=== PATIENT | female | born 1985 | race Hispanic/Latino ===

== ENCOUNTER 2017-11-01 11:15 | Inpatient (IN) | payer OTHER ==
[2017-11-01] VITALS (34 sets, daily range): BP systolic 99–149; BP diastolic 53–77
[~2017-11-01] VITALS: Ht 142.2 cm; Wt 56.2 kg
--- NOTE | 2017-11-01 11:05 | NUR ---
PATIENT TO UNIT FROM HOME ACCOMPANIED BY HER FRIEND. WEIGHT AND HEIGHT OBTAINED. ESCORTED TO ROOM 253. CLEAN CATCH SPECIMEN OF URINE EXPLAINED AND OBTAINED. EFM COMMENCED. HISTORY PER PART A ASSESSMENT. WILL ASSESS AND NOTIFY MD CALVILLO.
[~2017-11-01 11:15] MED LIST: PRE-NATAL PO
[2017-11-01 11:59] LABS: URINE BILIRUBIN - DIPSTICK NEGATIVE (NEGATIVE); URINE BLOOD DIPSTICK TRACE-INTACT (NEGATIVE); URINE COLOR YELLOW; URINE GLUCOSE - DIPSTICK NEGATIVE (NEGATIVE); URINE KETONE 15 mg/dL (NEGATIVE); URINE LEUK ESTERASE NEGATIVE (NEGATIVE); URINE NITRITE - DIPSTICK NEGATIVE (Negative); URINE PROTEIN - DIPSTICK NEGATIVE (NEG-TRACE); URINE UROBILINOGEN - DIPSTICK 0.2 E.U./dL (0.2)
--- NOTE | 2017-11-01 12:00 | NUR ---
CONTRACTIONS NOTED. SVE DONE CHARTED. MD TO BE NOTIFIED.
[2017-11-01 12:02] LABS: URINE CLARITY SL CLOUDY
[2017-11-01 12:08] LABS: BARBITURATES NEGATIVE (NEGATIVE); COCAINE NEGATIVE (NEGATIVE); METHADONE NEGATIVE (NEGATIVE); OXCYCODONE NEGATIVE (NEGATIVE); TETRAHYDROCANNABIONOL NEGATIVE (NEGATIVE); TRICYLIC ANTIDEPRESSANTS NEGATIVE (NEGATIVE)
--- NOTE | 2017-11-01 12:15 | NUR ---
DR LYNN NOTIFIED OF SVE. NEW ORDERS RECEIVED TO BE COMMENCED.
[2017-11-01 12:51] LABS: HEMOGLOBIN 10.5 g/dl (12.0-16.0); IMMATURE GRANULOCYTES 0.6 % (0.0-1.0); MEAN CELL VOLUME 75.7 fL CALC (80.0-100.0); MEAN CORPUSCULAR HGB 24.1 pG CALC (26.0-32.0); MEAN CORPUSCULAR HGB CONC 31.8 g/L CALC (32.0-36.0); NEUT# 8.57 thou/uL (2.00-7.15); RED BLOOD COUNT 4.36 mill/uL (4.20-5.60); RED CELL DISTRI WIDTH 17.3 % (11.5-15.5)
[2017-11-01 13:09] LABS: ALBUMIN 3.7 g/dL (3.2-5.0); ALKALINE PHOSPHATASE 362 u/l (38-126); ANION GAP 14 (6-22 (CALC)); BILIRUBIN, TOTAL 0.5 mg/dL (0.0-1.4); BUN 14 mg/dL (7-17); BUN/CREATININE RATIO 23 (12-20 (CALC)); CALCIUM 9.1 mg/dL (8.4-10.2); CARBON DIOXIDE 16 mmol/l (22-30); CHLORIDE 109 mmol/l (95-108); CREATININE 0.6 mg/dL (0.5-1.0); GFR > 60 ML/MIN (>=60 (CALC)); GFR FOR AFR.AMER. > 60 ML/MIN (>=60 (CALC)); GLUCOSE 76 mg/dL (65-105); POTASSIUM 4.4 mmol/l (3.5-5.1); SGOT/AST 28 u/l (14-36); SGPT/ALT 17 u/l (9-52); SODIUM 135 mmol/l (137-146); TOTAL PROTEIN 6.8 g/dL (6.3-8.2)
--- NOTE | 2017-11-01 13:50 | NUR ---
16FR BUTT CATHETER PLACED AT THIS TIME WITH APPROX 75 CC CLEAR YELLOW URINE RETURN. PATIENT TOLERATED PROCEDURE WELL.
--- NOTE | 2017-11-01 15:17 | NUR ---
TOLERATING CONTRACTIONS WELL. STATES PAIN IS "BEARABLE".
--- NOTE | 2017-11-01 15:33 | NUR ---
OFF MONITOR TO VOID AND WALK AFTERWARDS.
--- NOTE | 2017-11-01 16:04 | NUR ---
WALKING IN HALLWAY WITH S/O. TOLERATING SAME WELL. NO CONCERNS AT THIS TIME.
--- NOTE | 2017-11-01 17:14 | NUR ---
MEDCIATED FOR PAIN REQUESTED. VERBALSIE UNDERSTANDING OF SIDE EFFECTS.
--- NOTE | 2017-11-01 17:22 | NUR ---
RESTING IN BED WITH EYES CLOSED. RESPIRATIONS EVEN UNLABORED. OPENS EYES WITH NAME CALL. S/O AT BEDSIDE. VITAL SIGNS WNL. WILL CONTINUE TO MONITOR.
--- NOTE | 2017-11-01 18:28 | NUR ---
COMPLAINS OF BEING SLEEPY. REASSURED. ASSISTED TO POSITION CHANGE. S/O AT BEDSIDE. COPING WELL WITH CONTRACTIONS.
--- NOTE | 2017-11-01 18:45 | NUR ---
Intial shift assessment completed, pt speaks primarily chinese, but can get along with her romanian and nurse's chinese; will use Google Translate if anything not comprehended, or call for clinical data coordinator assistance. 1849 SVE /-2.
--- NOTE | 2017-11-01 18:50 | NUR ---
LR bolus 500 ml infusing r/t dayshift report of pts urine being very concentrated. Pt denies need to use bathroom at this time, denies offer to ambulate in room/romo. RN moved pt up in bed and coached her on breathing through contractions.
--- NOTE | 2017-11-01 19:00 | NUR ---
Mitchell Dockery, RNC call to Dr. Beltran re: SVE 7100/-2 membranes intact, pt contractions palpating strong and pt breathing well through contractions. asked when last dose of Nubain was, RN stated 2 hours ago. stated maybe another dose would help her. RN discussion with patient re: same. Pt states would like to wait awhile and will let nurse know when she needs pain meds.
--- NOTE | 2017-11-01 19:54 | NUR ---
Dr. Beltran on unit, visited patient. Pt up to bathroom, dizzy from medication but has steady gait. RN encouraged her to move at bedside or at least in the bed.
--- NOTE | 2017-11-01 19:56 | NUR ---
Pt only void 100ml, still slightly dark, LR 350 ml bolus infusing.
--- NOTE | 2017-11-01 20:19 | NUR ---
Pt doing a good job standing at bedside, moving hips with contractions. standing at her side.
--- NOTE | 2017-11-01 20:36 | NUR ---
LR bolus 500ml per Dr. Beltran r/t pt states she would like an epidural. Call to Customer Care Voice Consultant by Margie Amaral RN re: epdiural. Nursing supervisor water softener service will call in CREDIT FRONT OFFICE DEVELOPER, Dr. Beltran staying in hospital.
--- NOTE | 2017-11-01 20:42 | NUR ---
2040 Call to nursing typesetting supervisor re: pt would like an epidural, need PLASTIC PARTS DESIGNER. 2041 Moisés Valdez CRNA on the unit for epidural placement 2139 repeat calls to typesetting supervisor for automotive professional assistance re: epidural consent. 2144 Employee Iris in room interpreting consent. 215 Time Out for epidural.
[2017-11-02] VITALS (15 sets, daily range): BP systolic 93–123; BP diastolic 48–77
--- NOTE | 2017-11-02 00:17 | NUR ---
0017 Dr. Beltran in room for SVE, discussed section with patient r/t likely CPD. call to UTILITY WORKER PRODUCTION and OR team in the operating room downstairs re: same. 0033 Per oswmya done with explanation by Mitchell Dockery, RNC, jewelry removed. 0053 Ayo Valdez CRNA in room bolusing epidural 0103 Reglan given IV, 0107 Pepcid given IV. stated not to give any more antibiotics re: pt allergic to PCN and has received two doses of Clindamycin. 0136 Pt to OR via stretcher by O.R. staff
--- NOTE | 2017-11-02 04:00 | NUR ---
Pt in room 207 transferred from PACU, report received from PACU nurse. Post assessment done, fundus firm at 1 above umbilicus, moderate rubra lochia, renetta care done and pads changed. Q 15 min vital signs started, VS stable. Pt c/o pain 3/10 lower abdomen, can move legs but "feels like they are asleep". Laguerre draining clear dark orange urine. IV right hand 20g LR with pitocin 20 units infusing at 125ml/hr and SENIOR SQL DBA Morphine infusing at 2ml/hr. SCD's below the knee in place.
--- NOTE | 2017-11-02 05:35 | NUR ---
Incentive spirometer given to patient with instructions for use.
--- NOTE | 2017-11-02 07:00 | NUR ---
BEDSIDE REPORT DONE WITH LUIS BALDERAS. PATIENT LYING IN BED AWAKE. ADMITS TO MILD INCISIONAL PAIN. PLAN OF CARE DISCUSSED. PATIENT VERBALISE UNDERSTANDING. S/O AT BEDSIDE. NO CONCERNS AT THIS TIME.
--- NOTE | 2017-11-02 08:05 | NUR ---
ASSESSMENT DONE CHARTED. STATES PAIN IS BEARABLE. TOOK AND TOLERATED BREAKFAST.
--- NOTE | 2017-11-02 10:32 | NUR ---
PATIENT REQUESTING INFORMATION ON DEPRESSION. STATES SHE HAS NEVER BEEN DEPRESSED BUT HER SISTER HAD DEPRESSION. INFORMATION GIVEN TO PATIENT IN LITHUANIAN. PATIENT INFORMED THAT SHE WILL NOT NECESSARILY HAVE DEPRESSION BECAUSE OF HER SISTERS HISTORY.
--- NOTE | 2017-11-02 11:00 | NUR ---
ASSISTED UP TO BATHROOM. TOLERATED SAME WELL. BUTT REMOVED. FILOMENA EXPLAINED, DONE AND REDEMONSTRATION DONE. WASHED HER FACE AND BRUSHED HER TEETH. RETURNS TO BED. INSTRUCTED TO CALL NURSE FOR ASSISTANCE BEFORE GETTING OUT OF BED. PATIENT VERBALISE UNDERSTANDING. CALL LIGHTS WNL.
[2017-11-02 13:14] LABS: HEMATOCRIT 24.2 % (37.0-47.0); HEMOGLOBIN 7.9 g/dl (12.0-16.0); MEAN CELL VOLUME 75.2 fL CALC (80.0-100.0); MEAN CORPUSCULAR HGB 24.5 pG CALC (26.0-32.0); MEAN CORPUSCULAR HGB CONC 32.6 g/L CALC (32.0-36.0); NEUT# 9.96 thou/uL (2.00-7.15); RED BLOOD COUNT 3.22 mill/uL (4.20-5.60); RED CELL DISTRI WIDTH 17.2 % (11.5-15.5)
--- NOTE | 2017-11-02 16:09 | NUR ---
assisted to restroom. tolerated same with slight dizziness. back to bed. s/o at bedside. will continue to monitor.
--- NOTE | 2017-11-02 17:49 | NUR ---
PATIENT SITTING UP ON SIDE OF BED. NO CONCERNS AT THIS TIME. DINNER GIVEN. S/O AT BEDSIDE.
--- NOTE | 2017-11-02 19:27 | NUR ---
Initial shift assessment completed, pt given Lortab and Motrin for pain 01/22 states it especially hurts when she moves/walks. RN encouraged pt to ambulate in romo, used Google Translate to explain how her blood level dropped after having surgery and the importance of taking the iron, especially when she goes home, and drinking lots of fluid without caffeine. Pt then voiced understanding. IV removed with catheter intact, VS stable. Fundus firm at 1/U, Moderate rubra lochia, pt doing own renetta care and RN offered assistance if needed. low transverse abdominal incision with bulky dressing clean/dry/intact. RN offered assistance with shower and told her it would be easier to remove the bandage, pt asked if she could wait until later. Pt breathing unlabored, clear lungs bilaterally. Pt stable.
--- NOTE | 2017-11-02 20:22 | NUR ---
Mother states her told her "because of my stomach I cannot touch my baby". RN in room showing pt how to hold, feed and burp the baby.
--- NOTE | 2017-11-02 22:30 | NUR ---
Pt ambulating in hallway with steady gait accompanied by her while she is pushing baby in crib.
--- NOTE | 2017-11-02 23:06 | NUR ---
Pt states only has slight pain at this time, agreement made to remedicate at 0100.
[2017-11-03] VITALS (8 sets, daily range): BP systolic 96–124; BP diastolic 50–65
--- NOTE | 2017-11-03 01:00 | NUR ---
Pt medicated with Motrin and Lortab for abdominal pain 01/22. Pt up and ambulating in room without assistance, no dizziness. Parents agreed to send baby to nursery for awhile so they could sleep, baby to nursery.
--- NOTE | 2017-11-03 02:51 | NUR ---
Pt and her soundly asleep in her bed. Baby remains asleep in nursery
--- NOTE | 2017-11-03 06:50 | NUR ---
REPORT RECEIVED BY SHERRIE ROSE.
--- NOTE | 2017-11-03 08:00 | NUR ---
ASSESSMENT DONE AND VS CHARTED. PT STATED THAT SHE FEELS DIZZY WHEN SHE GETS UP. EXPLAINED TO PT TO SIT IN THE SIDE OF THE BED FIRST AND THEN GET UP SLOWLY. PT VERBALIZED UNDERSTANDING. PT STATED THAT SHE HAS BEEN PASSING GAS BUT NO BM. PT STATED THAT SHE HAS NOT BEEN DRINKING A LOT OF FLUIDS. ENCOURAGE PT TO DRINK MORE WATER. ENCOURAGE PT TO USE INCENTIVE SPIROMETRY. PT VERBALIZED UNDERSTANDING. CALL LIGHT IN REACH. S/O IN ROOM.
--- NOTE | 2017-11-03 08:30 | NUR ---
DR. LYNN AT BEDSIDE. ASSESSMENT DONE BY . PT TOLD MD THAT SHE HAS BEEN FEELING DIZZY. ALSO, TOLD MD ABOUT PT TEMP. MD TOLD PT TO DRINK MORE FLUIDS.
--- NOTE | 2017-11-03 11:52 | NUR ---
PT OUT OF THE SHOWER. PT STATED THAT SHE DID NOT FEEL DIZZY. PT TOLERATED SHOWER WELL. PT DENIES ANY NEEDS AT THIS TIME. S/O IN ROOM.
--- NOTE | 2017-11-03 13:50 | NUR ---
PT AMBULATING IN STEADY GAIT IN THE HALLWAYS HOLDING TO INFANT CRIB. PT STATED THAT SHE DID NOT FEEL DIZZY WALKING. PT STATED THAT SHE JUST FELT WEAK. RN AT SIDE .
--- NOTE | 2017-11-03 15:46 | NUR ---
CALLED DR. LYNN RE: PT C/O OF HEART RACING. VS 96/52, HR 100, 02 98%. ORDERS RECEIVED.
[2017-11-03 16:07] LABS: HEMATOCRIT 24.6 % (37.0-47.0); HEMOGLOBIN 7.9 g/dl (12.0-16.0); MEAN CELL VOLUME 77.4 fL CALC (80.0-100.0); MEAN CORPUSCULAR HGB 24.8 pG CALC (26.0-32.0); MEAN CORPUSCULAR HGB CONC 32.1 g/L CALC (32.0-36.0); RED BLOOD COUNT 3.18 mill/uL (4.20-5.60); RED CELL DISTRI WIDTH 18.2 % (11.5-15.5)
[2017-11-03 16:26] LABS: BAND 29 % (0-8); MANUAL DIFFERENTIAL YES
[2017-11-03 16:27] LABS: PLATELET COUNT 60 thou/uL (130-400)
--- NOTE | 2017-11-03 16:50 | NUR ---
CALLED DR. LYNN RE: PT BEING SEPSIS DUE TO THE PROTOCOL OF SEPSIS. HR GREATHER THAN 90, WBC GREATER 14, PLT LESS THAN 150. PT RESULTS HR 110 @1535, WBC 19.5 @1557, PLT 60 @1557. STATED WILL BE COMING.
--- NOTE | 2017-11-03 17:13 | NUR ---
DR. GRAY AT BEDSIDE TO ASSESS PT. ORDERS RECEIVED.
--- NOTE | 2017-11-03 17:29 | NUR ---
LAB CAME TO DRAW PT LACTATE AND X2 BLOOD CULTURES.
--- NOTE | 2017-11-03 18:00 | NUR ---
CALLED DR. CASIANO ABOUT LACTIC ACID 4.8. ORDERS RECEIVED.
--- NOTE | 2017-11-03 18:03 | NUR ---
DR. LYNN CALLED TO MAKE A CONSULT FOR DR. NIX FOR PT.
--- NOTE | 2017-11-03 18:15 | NUR ---
DR. NIX AT BEDSIDE TO ASSESS PT.
--- NOTE | 2017-11-03 18:50 | NUR ---
REPORT GIVEN TO SHERRIE HUFF.
--- NOTE | 2017-11-03 18:59 | NUR ---
DR. NIX IS AT BEDSIDE TO ASSESS PT.
--- NOTE | 2017-11-03 19:00 | NUR ---
REPORT RECEIVED FROM Mitchell HUBBARD RN, PT AWAKE AND ALERT, LYING IN BED, SPOUSE AT PT'S BEDSIDE, DR. NIX CONSULTING PT FOR RECENT CHANGE IN PT CONDITION, NEW ORDERS RECEIVED AND NOTED BY THIS NURSE AND DAY SHIFT NURSE, DR. NIX IN PT'S RM- REVIEWED POC AND RATIONALE W/PT AND SPOUSE- BOTH VERBALIZE UNDERSTANDING AND AGREE, ORDERS INITIATED AT THIS TIME.
--- NOTE | 2017-11-03 21:30 | NUR ---
ORDER FOR TRANSFUSION OF 2U OF PRBC'S, FIRST UNIT COMPLETED PER PROTOCOL AND W/OUT ANY REACTION, PT DENIES ANY CONCERNS AT THIS TIME, PER PT- FEELS "BETTER" AFTER RECEIVING THE UNIT OF BLOOD, VSS, ASSESSMENT DONE- SEE FLOWSHEET, PT AND SPOUSE ENCOURAGED TO CALL NURSE FOR ANY NEEDS OR CONCERNS, WILL CONT MONITORING PT.
[2017-11-03 22:36] LABS: URINE BLOOD DIPSTICK LARGE (NEGATIVE); URINE CLARITY CLOUDY; URINE COLOR AMBER; URINE GLUCOSE - DIPSTICK NEGATIVE (NEGATIVE); URINE KETONE NEGATIVE (NEGATIVE); URINE NITRITE - DIPSTICK NEGATIVE (Negative); URINE PH 6.5 (4.5-8.0); URINE PROTEIN - DIPSTICK 100 mg/dL (NEG-TRACE)
[2017-11-03 22:37] LABS: URINE BILIRUBIN - DIPSTICK NEGATIVE (NEGATIVE); URINE LEUK ESTERASE SMALL (NEGATIVE)
[2017-11-03 22:41] LABS: URINE BACTERIA MANY hpf; URINE RBC 25-50 RBC/hpf (0-5); URINE SQUAMOUS EPITHELIAL CELL FEW EPI/hpf (0-FEW)
[2017-11-04 00:35] VITALS: BP 90/55
--- NOTE | 2017-11-04 00:40 | NUR ---
SECOND UNIT OF BLOOD TRANSFUSION COMPLETE ORDERED, TRANSFUSION INFUSED W/OUT ANY REACTION, PT TOLERATED WELL, VS REMAINED STABLE, PT DENIES PAIN AT THIS TIME, SPOUSE AT BEDSIDE, PT DENIES ANY NEEDS AT THIS TIME, WILL CONT TO MONITOR.
[2017-11-04 01:48] LABS: HEMATOCRIT 30.6 % (37.0-47.0); HEMOGLOBIN 9.9 g/dl (12.0-16.0); IMMATURE GRANULOCYTES 1.6 % (0.0-1.0); MEAN CELL VOLUME 81.8 fL CALC (80.0-100.0); MEAN CORPUSCULAR HGB 26.5 pG CALC (26.0-32.0); MEAN CORPUSCULAR HGB CONC 32.4 g/L CALC (32.0-36.0); RED BLOOD COUNT 3.74 mill/uL (4.20-5.60); RED CELL DISTRI WIDTH 19.1 % (11.5-15.5)
[2017-11-04 02:14] LABS: MANUAL DIFFERENTIAL YES
[2017-11-04 02:15] LABS: BAND 11 % (0-8)
[2017-11-04 02:38] LABS: PLATELET COUNT 42 thou/uL (130-400)
[2017-11-04 03:30] VITALS: BP 101/59
--- NOTE | 2017-11-04 06:14 | NUR ---
PT RESTING QUIETLY IN CHAIR- AROUSES EASILY, MEDICATED SCHEDULED, PT DENIES ANY CONCERNS AT THIS TIME, PER PT- WAS ABLE TO TAKE A NAP AND FEELS BETTER, SPOUSE AT BEDSIDE TENDING TO , PT ALSO REENCOURAGED TO CALL OUT FOR NURSE FOR ANY FURTHER NEEDS OR CONCERNS- VERBALIZES UNDERSTANDING.
--- NOTE | 2017-11-04 07:00 | NUR ---
BEDSIDE REPORT WITH Jordan MONGE RN. KAMINI INTERPRETING FOR PT. PT IN CHAIR WITHOUT CONCERN OR COMPLAINT EXPRESSED. PTS LYING IN THE BED. Ayo ZELAYA WILL INTERPRET NEEDED. PT DOES COMMUNICATE SOME IN PRYDEINIG
[2017-11-04 07:12] LABS: ALBUMIN 2.1 g/dL (3.2-5.0); ALKALINE PHOSPHATASE 171 u/l (38-126); ANION GAP 10 (6-22 (CALC)); BILIRUBIN, TOTAL 4.9 mg/dL (0.0-1.4); BUN 14 mg/dL (7-17); BUN/CREATININE RATIO 19 (12-20 (CALC)); CALCIUM 7.5 mg/dL (8.4-10.2); CARBON DIOXIDE 19 mmol/l (22-30); CHLORIDE 114 mmol/l (95-108); CREATININE 0.7 mg/dL (0.5-1.0); GFR > 60 ML/MIN (>=60 (CALC)); GFR FOR AFR.AMER. > 60 ML/MIN (>=60 (CALC)); GLUCOSE 96 mg/dL (65-105); MAGNESIUM 1.3 mg/dL (1.6-2.3); POTASSIUM 4.2 mmol/l (3.5-5.1); SGOT/AST 65 u/l (14-36); SGPT/ALT 35 u/l (9-52); SODIUM 139 mmol/l (137-146); TOTAL PROTEIN 4.4 g/dL (6.3-8.2)
[2017-11-04 07:14] LABS: DIRECT BILIRUBIN 2.7 mg/dl (0.0-0.3)
--- NOTE | 2017-11-04 07:43 | NUR ---
SPOKE WITH DR. MANUEL TO CONFIRM THAT NO F/U CBC WAS ORDERED AT 0600 TODAY "NO NEED FOR ANOTHER ONE AT THIS TIME"
[2017-11-04 08:00] VITALS: BP 111/59
--- NOTE | 2017-11-04 08:37 | NUR ---
DR. LYNN HERE. CBC ORDERED ON BLOOD DRAW FROM 0630 TODAY
[2017-11-04 08:56] LABS: BASO% 0 % (0-3); EOS% 0 % (0-8); HEMATOCRIT 28.6 % (37.0-47.0); HEMOGLOBIN 9.7 g/dl (12.0-16.0); IMMATURE GRANULOCYTES 2.3 % (0.0-1.0); LYMPH% 2 % (15-41); MEAN CELL VOLUME 80.1 fL CALC (80.0-100.0); MEAN CORPUSCULAR HGB 27.2 pG CALC (26.0-32.0); MEAN CORPUSCULAR HGB CONC 33.9 g/L CALC (32.0-36.0); MONO% 5 % (2-13); NEUT% 90 % (42-76); PLATELET COUNT 51 thou/uL (130-400); RED BLOOD COUNT 3.57 mill/uL (4.20-5.60); RED CELL DISTRI WIDTH 18.7 % (11.5-15.5)
[2017-11-04 09:20] VITALS: BP 110/60
[2017-11-04 09:33] LABS: MANUAL DIFFERENTIAL YES
[2017-11-04 09:34] LABS: BAND 52 % (0-8)
--- NOTE | 2017-11-04 10:13 | NUR ---
CHART AND LAB REVIEW WITH Ronda SULTANA, RN AND KATTY GAY, RN/ICU. Mitchell ROA RN PRESENT. DR. MANUEL TO SEE PT THIS AM. PLAN OF CARE REVIEWED WITH PT. AND . PT CONTINUES TO DO WELL, OOB WITHOUT DIFFICULTY. VS STABLE, AFEBRILE. WBC IS ELEVATED AND LAST PLATELETS ARE INCREASED TO 51,000
--- NOTE | 2017-11-04 11:04 | NUR ---
DR. MANUEL HERE AND SPOKE WITH PT AND IN ZAMBIAN RE: LOW PLATELETS AND ELEVATED WBC AND NEED FOR LAB PERIPHERAL SMEAR. PT EXPRESSES UNDERSTANDING FOR NEED FOR CONTINUED ANTIBIOTICS AND OBSERVATION. ENCOURAGED TO ASK QUESTIONS.
[2017-11-04 11:30] VITALS: BP 105/59
--- NOTE | 2017-11-04 11:46 | NUR ---
PT USING INCENTIVE SPIROMETER, REMINDED TO USE BREAST PUMP Q 2-3 HOURS AND GIVEN INSTRUCTIONS. PT JUST FINISHED AMBULATING IN ROOM. ENCOURAGED AMBULATION IN HALLWAY. PT ASYMTOMATIC WHEN AMBULATING.
--- NOTE | 2017-11-04 14:55 | NUR ---
ANTIBIOTIC INFUSED AND D/C'D BY Ramy GARAY RN
[2017-11-04 15:30] LABS: HEMATOCRIT 30.2 % (37.0-47.0); HEMOGLOBIN 10.4 g/dl (12.0-16.0); IMMATURE GRANULOCYTES 4.5 % (0.0-1.0); MEAN CELL VOLUME 79.9 fL CALC (80.0-100.0); MEAN CORPUSCULAR HGB 27.5 pG CALC (26.0-32.0); MEAN CORPUSCULAR HGB CONC 34.4 g/L CALC (32.0-36.0); PLATELET COUNT 69 thou/uL (130-400); RED BLOOD COUNT 3.78 mill/uL (4.20-5.60)
[2017-11-04 15:33] LABS: MANUAL DIFFERENTIAL YES
[2017-11-04 15:51] LABS: BAND 32 % (0-8)
--- NOTE | 2017-11-04 16:31 | NUR ---
DOING WELL, AMBULATING. ENCOURAGED BREAST PUMP USE AGAIN. STATES TYLENOL GAVE GOOD RELIEF
--- NOTE | 2017-11-04 17:17 | NUR ---
MAGNESIUM SULFATE ORDER CLARIFIED WITH Wanda GAY RN, ICU. WILL BE GIVEN OVER [address] LYNN COMING IN TO EXPLAIN TO PT IN TURKISH
--- NOTE | 2017-11-04 17:34 | NUR ---
DR. LYNN HERE TO SEE PT. PLAN OF CARE AND FOLLOWUP DISCUSSED AND ALL LABS REVIEWED
--- NOTE | 2017-11-04 18:15 | NUR ---
REPORT PREPARED FOR ONCOMING SHIFT
--- NOTE | 2017-11-04 18:45 | NUR ---
REPORT RECEIVED FROM Mela CHAUDHARY RN. BEDSIDE REPORTING COMPLETED. PLAN OF CARE REVIEWED. PATIENT SITTING AT SIDE OF BED, EATING MEAL. DENIES NEEDS AT THIS TIME.
[2017-11-04 20:30] VITALS: BP 104/67
--- NOTE | 2017-11-04 20:30 | NUR ---
ASSESSMENT COMPLETED. PATIENT REASSURED RE/ EDEMA AND ENCOURAGED USE OF PAIN MEDICATION TO ALLOW INCREASED ACTIVITY. VERBALIZED UNDERSTANDING.
--- NOTE | 2017-11-04 22:00 | NUR ---
COMPUTER-GENERATED ORDERS REVIEWED, IV FLUIDS CHANGED FROM LR TO D5 LR @ 100 MLS PER HOUR, ORDERED.
--- NOTE | 2017-11-04 22:09 | NUR ---
IV ANTIBIOTIC, MERREM 1 GR. INFUSING ORDERED; IV SITE IN LRA WITHOUT S/S OF IV COMPLICATIONS.
[2017-11-05 00:10] VITALS: BP 111/65
--- NOTE | 2017-11-05 00:10 | NUR ---
ASSUMED CARE OF PT.
--- NOTE | 2017-11-05 00:15 | NUR ---
VSS CHARTED. PT TOLERATING REGULAR DIET AND PO FLUIDES; VOIDING WITHOUT DIFFICULTY, DENIES ANY C/O BURNING, URGENCY, OR PAIN WHEN URINATING. IN D5LR INFUSING AT 100ML/HR ON INFUSION PUMP; IV SITE IN LFA REMAINS WITHOUT S/S OF IV COMPLICATIONS. SIGNIFICANT OTHER REMAINS AT BEDSIDE, CARING FOR APPROPRIATELY. PT DENIES ANY C/O DISCOMFORT AT THIS TIME. CALLBELL WITHIN REACH.
--- NOTE | 2017-11-05 01:41 | NUR ---
PT RESTING QUEILTY IN BED WITH EYES CLOSED, RESPIRATIONS UNLABORED; IN NO APPARENT DISTRESS. IV MAINTAINED WITHOUT INCIDENT. CALLBELL WITHIN REACH.
--- NOTE | 2017-11-05 03:00 | NUR ---
PT OOB TO BATHROOM; DENIES ANY C/O DISCOMFORT AT THIS TIME.
[2017-11-05 04:30] VITALS: BP 106/68
--- NOTE | 2017-11-05 04:46 | NUR ---
VSS. PT C/O INCREASED INCISIONAL DISCOMFORT, RATING HER PAIN LEVEL AT 5:10; MEDICATED ORDERED WITH LORTAB 7.5 MG PO. IV MAINTAINED WITHOUT INCIDENT. CALLBELL WITHIN REACH.
--- NOTE | 2017-11-05 05:45 | NUR ---
PT NOW RESTING QUIELTY IN BED, VERBALIZED RELIEF OF PAIN FROM LORTAB GIVEN EARLIER; OFFERS NO FURTHER C/O DISCOMFORT AT THIS TIME.
--- NOTE | 2017-11-05 06:15 | NUR ---
IV, D5LR CONTINUES INFUSING AT 100ML/HR ON INFUSION PUMP; IV ANTIBIOTIC, MERREM, 1 GR IVPB IS INFUSING ORDERED; IV SITE IN LFA REMAINS WITHOUT S/S OF IV COMPLICATIONS; LAB DRAWN ORDERED; PT IS SITTING UP IN BED, RESTING QUIELTY, DENIES ANY C/O DISCOMFORT AT THIS TIME. SIGNIFICANT OTHER REMAINS AT BEDSIDE CARING FOR . CALLBELL WITHIN REACH.
[2017-11-05 06:23] LABS: HEMATOCRIT 27.8 % (37.0-47.0); HEMOGLOBIN 9.3 g/dl (12.0-16.0); IMMATURE GRANULOCYTES 2.1 % (0.0-1.0); MEAN CELL VOLUME 81.3 fL CALC (80.0-100.0); MEAN CORPUSCULAR HGB 27.2 pG CALC (26.0-32.0); MEAN CORPUSCULAR HGB CONC 33.5 g/L CALC (32.0-36.0); NEUT# 21.95 thou/uL (2.00-7.15); RED BLOOD COUNT 3.42 mill/uL (4.20-5.60); RED CELL DISTRI WIDTH 19.2 % (11.5-15.5)
--- NOTE | 2017-11-05 06:50 | NUR ---
PT ENCOURAGED TO USE THE INCENTIVE SPIROMETER, PT DEMONSTRATED PROPER USE, WAS ABLE TO GET UP 1000 - 1500 ML X 10 REPITITIONS. PT WAS INSTRUCTED TO USE THE INCENTIVE SPIROMETER EVERY HOUR WHILE AWAKE, PT VERBALIZED UNDERSTANDING.
--- NOTE | 2017-11-05 07:40 | NUR ---
RESTS IN BED, ABD SOFT, FUNDUS FIRM. PT STATES SHE HAS NO PROBLEM URINATING, DOES ANEESH CARE. DENIES ANY PROBLEM URINATING. S/O IN ROOM, PT SERVED MEAL.
--- NOTE | 2017-11-05 08:17 | NUR ---
OOB TO BATHROOM.
[2017-11-05 08:40] VITALS: BP 117/63
--- NOTE | 2017-11-05 08:40 | NUR ---
SITS ON SIDE OF BED EATING BREAKFAST. DENIES PAIN.
--- NOTE | 2017-11-05 08:45 | NUR ---
DR LYNN IN TO SEE PT.
--- NOTE | 2017-11-05 10:30 | NUR ---
PT HAS BEEN OOB WALKING IN ROOM.
--- NOTE | 2017-11-05 11:21 | NUR ---
DR MANUEL PHONES IN, TO START PT ON PO CIPRO, FOR UTI. IV ANTIBIOTIC DISCONTINUED. DR MANUEL WILL CALL DR LYNN TO SPEAK TO HIM.
--- NOTE | 2017-11-05 12:25 | NUR ---
PT STATES SHE DOES NOT KNOW WHY SHE IS NEEDING ANTIBIOTICS. DISCUSSED WITH PT AND S/O SYMPTOMS AND LAB WORK RESULTS RELATED TO SEPTIC WORK UP. DISCUSSED IMPORTANCE OF TREATMENT TO AVOID DETERIORATION OF HEALTH, BODY ORGANS. PT AND S/O RESEARCH SEPSIS ON INTERNET VIA CELL PHONES. PT GIVEN PT WRITTEN PT INSTRUCTION INFORMATION ON SEPSIS. PT AND S/O VERBALIZE SATISFACTION WITH [id number] INFORMATION, AWARE TO LET US KNOW IF THEY HAVE ANY QUESTIONS TO BE ANSWERED.
[2017-11-05 14:00] VITALS: BP 116/80
--- NOTE | 2017-11-05 15:15 | NUR ---
DISCHARGE PLAN FOR AND PT REVIEWED, PT VERBALIZES UNDERSTANDING.
[2017-11-05 17:10] VITALS: BP 119/67
--- NOTE | 2017-11-05 17:17 | NUR ---
PT WAS RESTING IN BED, SITTING FOR VS TO BE TAKEN, USING INCENTIVE SPIROMETER. S/O IN ROOM.
--- NOTE | 2017-11-05 19:15 | NUR ---
1914:PT REPORT RECEIVED FROM HENRIQUE WALTERS RN IN PT ROOM. PT SITTING ON SIDE OF BED EATING DINNER. DAY NURSE EXPLAINS TO PT IN MAORI NEED TO KEEP LEGS ELEVATED, KEEP MEASURING URINE. PT COMPLAINS SHE WANTS IV "OFF". 1929: DR. MANUEL NOTIFIED OF PT REQUESTING TO HAVE IV D/C. PHYSICIAN ORDERS RECEIVED TO D/C. ORDER WRITTEN AND CARRIED OUT. PT IV SALINE LOCKED.
--- NOTE | 2017-11-05 19:15 | NUR ---
REPORT TO ONCOMING NURSE IN ROOM. REVIEWED WITH PT TO KEEP LEGS ELEVATED, CONTINUE TO DRINK FLUIDS. PT MAY TAKE SHOWER, PT MAY BREAST FEED AFTER 8PM TONIGHT. PT STATES SHE DID NOT PUMP BREASTS THINKING THE COLOLSTRUM FOR BABY WAS BENEFICIAL. ASKED PT IF S EH HAD ANY QUESTIONS, STATES SHE HAS BEEN EXPERIENCING SLIGHT DISTORTION OF HEARING, JUST STARTED, STATES SHE THINKS ALL THE IV FLUIDS SHE IS RECEIVING MAY BE THE CAUSE.
--- NOTE | 2017-11-05 20:17 | NUR ---
CBC DRAWN FROM LEFT ANTICUBITAL WITHOUT DIFFICULTY. NO BLEEDING FROM SITE POST PROCEDURE.
[2017-11-05 20:35] LABS: IMMATURE GRANULOCYTES 2.8 % (0.0-1.0); MEAN CELL VOLUME 82.2 fL CALC (80.0-100.0); MEAN CORPUSCULAR HGB 26.5 pG CALC (26.0-32.0); MEAN CORPUSCULAR HGB CONC 32.3 g/L CALC (32.0-36.0); PLATELET COUNT 103 thou/uL (130-400); RED BLOOD COUNT 3.77 mill/uL (4.20-5.60); RED CELL DISTRI WIDTH 19.6 % (11.5-15.5)
[2017-11-05 21:00] LABS: MANUAL DIFFERENTIAL YES
[2017-11-05 21:11] VITALS: BP 122/75
[2017-11-05 21:17] LABS: BAND 20 % (0-8)
--- NOTE | 2017-11-05 22:50 | NUR ---
PT SITTING ON SIDE OF BED WITH FEET DANGLING. ENCOURAGED AGAIN TO ELEVATE FEET IN BED. PT AND ACKNOWLEDGE REQUEST. BED IN LOW POSITION AND CALL LIGHT WITHIN REACH. VOIDS 500CC BLOOD TINGED URINE. HAS NO COMPLAINTS.
--- NOTE | 2017-11-06 02:34 | NUR ---
CARE ASSUMED BY Mitchell SCHMIDT RN. PAIN MEDICATION ADMINISTERED PER ORDERS. URINE OUTPUT IMPROVING, BECOMING CLEARER. PATIENT C/O FEELING OF "FULLNESS' IN THE EARS BILATERALLY, WITHOUT ASSOCIATED PAIN. REMAINS AFEBRILE. WILL CONTINUE TO MONITOR. SIDE RAILS UP X 2, CALL [place] WITHIN REACH.
[2017-11-06 02:57] VITALS: BP 128/82
--- NOTE | 2017-11-06 04:45 | NUR ---
RESTING WITH EYES CLOSED. SIDE RAILS UP X 2. CALL [place] WITHIN REACH. NO CLINICAL NEEDS IDENTIFIED AT THIS TIME.
[2017-11-06 07:24] LABS: HEMATOCRIT 29.3 % (37.0-47.0); HEMOGLOBIN 9.6 g/dl (12.0-16.0); MEAN CELL VOLUME 81.6 fL CALC (80.0-100.0); MEAN CORPUSCULAR HGB 26.7 pG CALC (26.0-32.0); MEAN CORPUSCULAR HGB CONC 32.8 g/L CALC (32.0-36.0); NEUT# 11.66 thou/uL (2.00-7.15); RED BLOOD COUNT 3.59 mill/uL (4.20-5.60); RED CELL DISTRI WIDTH 19.7 % (11.5-15.5)
[2017-11-06 08:40] VITALS: BP 133/82
--- NOTE | 2017-11-06 08:40 | NUR ---
ASSESSMENT IS COMPLETED: IV SITE IS FREE FROM REDNESS OR EDEMA. +2 PITTING EDEMA NOTED ON BILAT FEET. CONTINUE TO OBSERVE AND MONITOR.
--- NOTE | 2017-11-06 09:57 | NUR ---
IN TO REMOVE ROSEANN ON PT. PT TOLERATED WELL. INQUIRING WHEN HER IV CAN COME OUT. INFORMED SOON THE DR'S SAY ITS OK, VERBALIZED UNDERSTANDING,. BONDS WELL WITH .
--- NOTE | 2017-11-06 09:59 | NUR ---
SPOKE WITH DR MANUEL RE: PT AND BEING DISCHARGED.
[2017-11-06] MEDS ORDERED: CIPROFLOXACN500 MG PO (11:33)
[2017-11-06] MEDS ORDERED: NORCO1 TA1 PO (11:34)
--- NOTE | 2017-11-06 12:01 | NUR ---
ALL DISCHARGE INSTRUCTIONS GIVENA ND EXPLAINED IN DETAIL BY LORNA BALDERAS . IV SITE WAS DISCONTINUED AT 1100.
--- NOTE | 2017-11-06 12:03 | NUR ---
PRESCRIPTIONS GIVEN TO MOTHER FOR : FERROUS SULFATE, NORCO, AND CIPRO.
--- NOTE | 2017-11-06 13:03 | NUR ---
PT TRANSPORTED WITH ALL BELONGINGS . ALL PAPERS INFANT BEING CARRIED BY FATHER IN THE CAR SEAT.
--- NOTE | 2017-11-06 13:05 | NUR ---
Discharge instructions given. Patient verbalizes understanding of same. Discharged in stable condition via Wheelchair to Home with family. All belongings sent with pt.
== END 2017-11-06 12:55 | disposition home or self-care (01) | DRG 765 ==
LOC: OB 11:15 → OBOP 11:15 → OB 12:15
PROVIDERS: Emergency Medicine; Internal Medicine
PROC: 10907ZC Drainage of Amniotic Fluid, Therapeutic from Products of Conception, Via Natural or Artificial Opening (ICD-10-PCS; principal; 2017-11-01)
PROC: 10D00Z1 Extraction of Products of Conception, Low, Open Approach (ICD-10-PCS; 2017-11-02)
PROC: 30233N1 Transfusion of Nonautologous Red Blood Cells into Peripheral Vein, Percutaneous Approach (ICD-10-PCS; 2017-11-03)
DX: O48.0 Post-term pregnancy (principal); D62 Acute posthemorrhagic anemia; O86.21 Infection of kidney following delivery; O90.81 Anemia of the puerperium; O62.2 Other uterine inertia; O65.9 Obstructed labor due to maternal pelvic abnormality, unspecified; Z37.0 Single live birth; Z3A.41 41 weeks gestation of pregnancy; O99.824 Streptococcus B carrier state complicating childbirth; B96.89 Other specified bacterial agents as the cause of diseases classified elsewhere
CPT/HCPCS: J2795; J3475; P9016; Q9967

== ENCOUNTER 2019-02-18 15:42 | Inpatient (IN) | payer OTHER ==
[~2019-02-18] VITALS: Ht 142.2 cm; Wt 54.6 kg
[~2019-02-18 15:42] MED LIST changes: +CIPROFLOXACN500 MG PO; +NORCO1 TA1 PO
[2019-02-18 16:19] LABS: IMMATURE GRANULOCYTES 0.5 % (0.0-5.0); MEAN CELL VOLUME 80.8 fL CALC (80.0-100.0); MEAN CORPUSCULAR HGB 26.8 pG CALC (26.0-32.0); MEAN CORPUSCULAR HGB CONC 33.2 g/L CALC (32.0-36.0); NEUT# 12.21 thou/uL (2.00-7.15); RED BLOOD COUNT 4.78 mill/uL (4.20-5.60); RED CELL DISTRI WIDTH 13.5 % (11.5-15.5)
[2019-02-18 16:20] LABS: URINE BILIRUBIN - DIPSTICK NEGATIVE (NEGATIVE); URINE BLOOD DIPSTICK MODERATE (NEGATIVE); URINE COLOR YELLOW; URINE GLUCOSE - DIPSTICK NEGATIVE (NEGATIVE); URINE KETONE NEGATIVE (NEGATIVE); URINE LEUK ESTERASE TRACE (NEGATIVE); URINE NITRITE - DIPSTICK NEGATIVE (Negative); URINE PH 8.5 (4.5-8.0); URINE PROTEIN - DIPSTICK 30 mg/dL (NEG-TRACE); URINE UROBILINOGEN - DIPSTICK 0.2 E.U./dL (0.2)
[2019-02-18 16:30] LABS: HEMATOCRIT 38.6 % (37.0-47.0); HEMOGLOBIN 12.8 g/dl (12.0-16.0)
[2019-02-18 16:56] LABS: ALKALINE PHOSPHATASE 111 u/l (38-126); ANION GAP 18 (6-22 (CALC)); BILIRUBIN, TOTAL 0.5 mg/dL (0.0-1.4); BUN 17 mg/dL (7-17); BUN/CREATININE RATIO 34 (12-20 (CALC)); CARBON DIOXIDE 18 mmol/l (22-30); CHLORIDE 104 mmol/l (95-108); CREATININE 0.5 mg/dL (0.5-1.0); GFR > 60 ML/MIN (>=60 (CALC)); GFR FOR AFR.AMER. > 60 ML/MIN (>=60 (CALC)); LIPASE 61 u/l (23-300); POTASSIUM 3.5 mmol/l (3.5-5.1); SGOT/AST 20 u/l (14-36); SODIUM 136 mmol/l (137-146)
[2019-02-18 17:01] LABS: URINE RBC 25-50 RBC/hpf (0-5); URINE SQUAMOUS EPITHELIAL CELL FEW EPI/hpf (0-FEW)
[2019-02-18 17:02] LABS: ALBUMIN 4.9 g/dL (3.2-5.0); TOTAL PROTEIN 8.6 g/dL (6.3-8.2)
[2019-02-18 20:32] VITALS: BP 130/82
[2019-02-19] VITALS (10 sets, daily range): BP systolic 93–114; BP diastolic 49–69
[2019-02-19 05:26] LABS: HEMATOCRIT 35.6 % (37.0-47.0); HEMOGLOBIN 11.7 g/dl (12.0-16.0); IMMATURE GRANULOCYTES 0.8 % (0.0-5.0); MEAN CELL VOLUME 82.4 fL CALC (80.0-100.0); MEAN CORPUSCULAR HGB 27.1 pG CALC (26.0-32.0); MEAN CORPUSCULAR HGB CONC 32.9 g/L CALC (32.0-36.0); NEUT# 16.42 thou/uL (2.00-7.15); RED BLOOD COUNT 4.32 mill/uL (4.20-5.60)
[2019-02-19 05:57] LABS: PROTHROMBIN TIME 10.7 SECONDS (9.0-12.5)
[2019-02-19 06:14] LABS: ALKALINE PHOSPHATASE 80 u/l (38-126); AMYLASE 44 u/l (30-110); ANION GAP 16 (6-22 (CALC)); BILIRUBIN, TOTAL 0.5 mg/dL (0.0-1.4); BUN 12 mg/dL (7-17); BUN/CREATININE RATIO 22 (12-20 (CALC)); CARBON DIOXIDE 18 mmol/l (22-30); CHLORIDE 106 mmol/l (95-108); CREATININE 0.5 mg/dL (0.5-1.0); GFR > 60 ML/MIN (>=60 (CALC)); GFR FOR AFR.AMER. > 60 ML/MIN (>=60 (CALC)); LIPASE 34 u/l (23-300); MAGNESIUM 1.6 mg/dL (1.6-2.3); POTASSIUM 3.8 mmol/l (3.5-5.1); SGOT/AST 15 u/l (14-36); SODIUM 137 mmol/l (137-146); TOTAL PROTEIN 7.2 g/dL (6.3-8.2)
[2019-02-19 06:16] LABS: ALBUMIN 3.9 g/dL (3.2-5.0)
[2019-02-20 00:25] VITALS: BP 97/56
[2019-02-20 04:14] VITALS: BP 96/56
[2019-02-20 08:10] VITALS: BP 105/55
[2019-02-20 14:54] LABS: HEMATOCRIT 33.2 % (37.0-47.0); HEMOGLOBIN 10.8 g/dl (12.0-16.0); IMMATURE GRANULOCYTES 0.6 % (0.0-5.0); MEAN CELL VOLUME 83.8 fL CALC (80.0-100.0); MEAN CORPUSCULAR HGB 27.3 pG CALC (26.0-32.0); MEAN CORPUSCULAR HGB CONC 32.5 g/L CALC (32.0-36.0); NEUT# 15.74 thou/uL (2.00-7.15); RED BLOOD COUNT 3.96 mill/uL (4.20-5.60); RED CELL DISTRI WIDTH 14.4 % (11.5-15.5)
[2019-02-20 15:40] LABS: ANION GAP 14 (6-22 (CALC)); BUN 17 mg/dL (7-17); BUN/CREATININE RATIO 26 (12-20 (CALC)); CHLORIDE 106 mmol/l (95-108); CREATININE 0.7 mg/dL (0.5-1.0); GFR > 60 ML/MIN (>=60 (CALC)); GFR FOR AFR.AMER. > 60 ML/MIN (>=60 (CALC)); POTASSIUM 3.7 mmol/l (3.5-5.1); SODIUM 140 mmol/l (137-146)
[2019-02-20 15:41] LABS: CARBON DIOXIDE 24 mmol/l (22-30)
[2019-02-20 15:45] LABS: URINE BILIRUBIN - DIPSTICK NEGATIVE (NEGATIVE); URINE BLOOD DIPSTICK MODERATE (NEGATIVE); URINE COLOR YELLOW; URINE GLUCOSE - DIPSTICK NEGATIVE (NEGATIVE); URINE KETONE NEGATIVE (NEGATIVE); URINE LEUK ESTERASE NEGATIVE (Negative); URINE NITRITE - DIPSTICK NEGATIVE (Negative); URINE PH 6.5 (4.5-8.0); URINE PROTEIN - DIPSTICK NEGATIVE (NEG-TRACE); URINE UROBILINOGEN - DIPSTICK 0.2 E.U./dL (0.2)
[2019-02-20 15:46] LABS: URINE CLARITY CLEAR
[2019-02-20 15:58] LABS: URINE SQUAMOUS EPITHELIAL CELL FEW EPI/hpf (0-FEW); URINE WBC 0-2 WBC/hpf (0-5)
[2019-02-20 17:12] VITALS: BP 140/90
[2019-02-20 19:00] VITALS: BP 110/57
[2019-02-20 23:48] VITALS: BP 104/48
[2019-02-21 04:00] VITALS: BP 115/62
[2019-02-21 05:36] LABS: HEMATOCRIT 32.5 % (37.0-47.0); HEMOGLOBIN 10.4 g/dl (12.0-16.0); IMMATURE GRANULOCYTES 0.5 % (0.0-5.0); MEAN CORPUSCULAR HGB 26.9 pG CALC (26.0-32.0); NEUT# 6.22 thou/uL (2.00-7.15); RED BLOOD COUNT 3.87 mill/uL (4.20-5.60); RED CELL DISTRI WIDTH 14.4 % (11.5-15.5)
[2019-02-21 06:04] LABS: ALBUMIN 3.2 g/dL (3.2-5.0); ALKALINE PHOSPHATASE 68 u/l (38-126); AMYLASE 39 u/l (30-110); ANION GAP 13 (6-22 (CALC)); BILIRUBIN, TOTAL 0.3 mg/dL (0.0-1.4); BUN 15 mg/dL (7-17); BUN/CREATININE RATIO 26 (12-20 (CALC)); CARBON DIOXIDE 25 mmol/l (22-30); CHLORIDE 107 mmol/l (95-108); CREATININE 0.6 mg/dL (0.5-1.0); GFR > 60 ML/MIN (>=60 (CALC)); GFR FOR AFR.AMER. > 60 ML/MIN (>=60 (CALC)); LIPASE 55 u/l (23-300); MAGNESIUM 1.9 mg/dL (1.6-2.3); SGOT/AST 16 u/l (14-36); SODIUM 141 mmol/l (137-146); TOTAL PROTEIN 6.3 g/dL (6.3-8.2)
[2019-02-21 07:37] VITALS: BP 120/74
[2019-02-21] MEDS ORDERED: TRAMADOL HCL50 MG PO (13:32)
== END 2019-02-21 16:25 | disposition home or self-care (01) | DRG 343 ==
LOC: ED 15:42 → ED-I 19:22 → ED 19:35 → MS2 19:36
PROVIDERS: Family Medicine; ADMIT Internal Medicine Nephrology; ATTEND Internal Medicine Nephrology
PROC: 0DTJ4ZZ Resection of Appendix, Percutaneous Endoscopic Approach (ICD-10-PCS; principal; 2019-02-19)
DX: K35.80 Unspecified acute appendicitis (principal); D72.828 Other elevated white blood cell count; R50.9 Fever, unspecified; R30.0 Dysuria; Z88.0 Allergy status to penicillin
CPT/HCPCS: J0692; J1956; Q9967